=== PATIENT | male | born 1975 | race Caucasian/White ===

== ENCOUNTER → 2017-02-18 | Outpatient (CLI) | payer BC ==
[~2017-02-18] MED LIST: CETI10TA84 PO; METO50TA7 PO
[2017-02-18 09:36] LABS: DAYS OF ABSTINENCE 2.5; METHOD OF COLLECTION MASTURBATION; SEMEN COLOR YELLOW-GRAY (GRY/GRYWHTE); SEMEN TIME OF COLLECTION 850; TYPE OF SPECIMEN CONTAINER STERILE
[2017-02-19 07:10] LABS: SPERM VIABILITY STAIN NOT INDICATED % (>58%)
== END | disposition home or self-care (01) ==
LOC: C.LAB 09:21
PROVIDERS: ATTEND Specialist
DX: Z31.41 Encounter for fertility testing (principal)